=== PATIENT | female | born 1985 | race Caucasian/White ===

== ENCOUNTER 2020-12-11 19:33 | Observation (INO) | payer OTHER ==
[~2020-12-11] VITALS: Ht 160 cm; Wt 59.0 kg
[~2020-12-11 19:33] MED LIST: FLONASE 0.05% N16 GM; ZITHROMAX250 MG PO; ZYRTEC10 MG PO
[2020-12-11 20:03] LABS: RED BLOOD COUNT 4.06 M/UL (4.00-5.10); WHITE BLOOD COUNT 8.3 K/UL (4.5-11.0)
[2020-12-11 20:29] LABS: BUN/CREATININE RATIO 15 (0-10)
[2020-12-12] MEDS ORDERED: OXCARBAZEPINE150 MG PO (09:13)
[2020-12-12] MEDS ORDERED: EFFEXOR 25 MG T25 MG PO (09:15)
[2020-12-12] MEDS ORDERED: TRI-SPRINTEC T1 EACH PO (09:16)
[2020-12-12] MEDS ORDERED: TIZANIDINE HCL2 MG PO (09:16)
[2020-12-12] MEDS ORDERED: MELOXICAM7.5 MG PO (09:17)
[2020-12-12] MEDS ORDERED: CLARITIN 10MG T10 MG PO (09:18)
[2020-12-12] MEDS ORDERED: B COMPLEX-FOLI1 EACH PO (09:18)
[2020-12-12] MEDS ORDERED: GABAPENTIN600 MG PO (09:18)
[2020-12-12] MEDS ORDERED: BUPRENORPHIN-N1 EACH SL (09:20)
[2020-12-12] MEDS ORDERED: KEPPRA 250 MG250 MG PO (12:09)
== END 2020-12-12 14:54 | disposition home or self-care (01) ==
LOC: ER1 19:33 → CDU 22:27
PROVIDERS: Family Medicine; ADMIT Internal Medicine
DX: R56.9 Unspecified convulsions (principal); G83.84 Todd's paralysis (postepileptic); E87.6 Hypokalemia; F11.20 Opioid dependence, uncomplicated; F17.210 Nicotine dependence, cigarettes, uncomplicated; Z86.73 Personal history of transient ischemic attack (TIA), and cerebral infarction without residual deficits; Z88.0 Allergy status to penicillin; Z79.899 Other long term (current) drug therapy; Z20.822 Contact with and (suspected) exposure to COVID-19
CPT/HCPCS: 70450; 70496; 70498; 71045; 80053; 80183; 80307; 81001; 82550; 82553; 83874; 84484; 85025; 85610; 93005; 96374; 99285; G0378; J1953; Q9967; U0002

== ENCOUNTER → 2021-04-05 | Outpatient (CLI) | payer OTHER ==
[~2021-04-05] MED LIST changes: +B COMPLEX-FOLI1 EACH PO; +BUPRENORPHIN-N1 EACH SL; +CLARITIN 10MG T10 MG PO; +EFFEXOR 25 MG T25 MG PO; +GABAPENTIN600 MG PO; +KEPPRA 250 MG250 MG PO; +MELOXICAM7.5 MG PO; +OXCARBAZEPINE150 MG PO; +TIZANIDINE HCL2 MG PO; +TRI-SPRINTEC T1 EACH PO
== END ==
LOC: EMI 09:31
DX: G40.209 Localization-related (focal) (partial) symptomatic epilepsy and epileptic syndromes with complex partial seizures, not intractable, without status epilepticus (principal); R93.0 Abnormal findings on diagnostic imaging of skull and head, not elsewhere classified; G93.89 Other specified disorders of brain
CPT/HCPCS: 70553; A9577

== ENCOUNTER → 2021-07-30 | Outpatient (CLI) | payer OTHER | LOC: HEART 5 14:58 | DX: J43.9 Emphysema, unspecified (principal) | CPT/HCPCS: 94060; 94729 ==